=== PATIENT | female | born 1980 | race Caucasian/White ===

== ENCOUNTER → 2016-11-01 | Outpatient (CLI) | payer OTHER ==
--- NOTE | 2016-11-02 12:50 | RAD ---
DATE: 11/01/2016. EXAM: DIGITAL DIAGNOSTIC BILATERAL, BREAST BILATERAL HISTORY: Palpable lump in the medial left breast. COMPARISON: None This study was interpreted with the benefit of Computerized Aided Detection (CAD ). FINDINGS: Bilateral breast ultrasound: The right breast is unremarkable. No solid or cystic mass is detected. Left breast 3:00 location is unremarkable. At the 9:00 location there is a small, well-defined ovoid nodule measuring 7 mm x 4 mm. This is most consistent with either small fibroadenoma or complex cyst. No shadowing is seen. Adjacent to this is an area of moderate heterogeneity with mixed regions of increased and decreased echogenicity measuring 2.2 x 1.3 x 2.0 cm. No posterior acoustic enhancement or shadowing is identified. Minimal internal vascularity is present. Impression: 1. 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 2. Moderate sized area of parenchymal heterogeneity at the 9:00 location of the left breast corresponding to the palpable abnormality. While this may merely represent parenchymal heterogeneity and fibrocystic changes, other etiologies cannot be entirely excluded. Hamartomatous tissue cannot be entirely excluded. Correlation with diagnostic mammography is recommended. Bilateral diagnostic mammogram: Bilateral subpectoral breast implants are noted. Both breasts are heterogeneously dense, limiting the sensitivity of mammography. The implant contours are smooth. Heterogeneous dense tissue in the left breast at the area of palpable abnormality is noted but no discrete mass is identified apart from a small benign nodule, correlating with the abnormality noted on ultrasound. No spiculated mass or suspicious microcalcifications are identified. The axillae are unremarkable. IMPRESSION: Parenchymal heterogeneity noted at the area of palpable abnormality in the left breast 9:00 location, considerations above. This may represent an area of the parenchymal heterogeneity and fibrocystic changes. Other etiologies cannot be entirely excluded. Further evaluation with MRI of the breasts is recommended for better characterization. BI-RADS CATEGORY: 0 INCOMPLETE: NEEDS ADDITIONAL IMAGING EVALUATION AND/OR PRIOR MAMMOGRAMS FOR COMPARISON. RECOMMENDED FOLLOW-UP: Now PQRS compliance statement: Patient information was entered into a reminder system with a target due date for the next mammogram. Mammography is a sensitive method for finding small breast cancers, but it does not detect them all and is not a substitute for careful clinical examination. A negative mammogram does not negate a clinically suspicious finding and should not result in delay in biopsying a clinically suspicious abnormality. "Our facility is accredited by the [employer] Mammography Program." MTDD
== END | disposition home or self-care (01) ==
LOC: US 10:03
PROVIDERS: ATTEND Physician Assistant Surgical
DX: N60.19 Diffuse cystic mastopathy of unspecified breast (principal); N63 Unspecified lump in breast
CPT/HCPCS: 76641; G0204; 77066